=== PATIENT | male | born 1975 | race Caucasian/White ===

== ENCOUNTER 2022-12-22 14:09 | Emergency (ER) | payer BC, SELFPAY ==
--- NOTE | ~2022-12-22 | XR_ITS ---
EXAMINATION: XR foot LT min 3V DATE: 12/22/2022 15:29 INDICATION: Left foot foreign body. TECHNIQUE: 4 views of left foot were obtained. COMPARISON: None. FINDINGS: Bone alignment is normal. No fracture. There is mild osteoarthritis of first metatarsophala ngeal joint and second proximal interphalangeal joint. There is an enthesophyte at plantar aspect of calcaneal tuberosity. IMPRESSION: 1. No radiopaque foreign body. Reviewed, dictated and finalized at location L.
[2022-12-22 14:33] VITALS: BP 122/79; PULSE 95; RESP 14; TEMP 37.7; O2SAT 100
--- NOTE | 2022-12-22 15:02 | ED.GENADULT ---
HPI - General Adult General Chief complaint: Unspecified Stated complaint: throat issue, left foot issue Time Seen by Provider: 12/22/22 15:02 History of Present Illness HPI narrative: 47-year-old male presented for 2 complaints. Endorses sore throat worsening over the past few days. Endorses painful swallow on decreased appetite. He denies cough, shortness of breath, wheezing or fever. Denies sick contacts. Denies taking anything for symptoms. Second complaint is wound to the left foot. States this started as athlete's foot, now reports weeping, foul odor, and is tender. No pcp. Denies known medical problems. Related Data Allergies Allergy/AdvReac Type Severity Reaction Status Date / Time penicillin G Allergy Mild Hives Verified 12/22/22 15:12 Review of Systems Review of Systems: CONSTITUTIONAL: Denies body aches, fever, chills, or sweats. EYES: Denies visual changes, redness, or discharge. ENT: Reports sore throat denies rhinorrhea, congestion, or otalgia. CARDIOVASCULAR: Denies chest pain, palpitations, or edema. RESPIRATORY: Denies dyspnea. GASTROINTESTINAL: Denies abdominal pain, nausea, vomiting, or diarrhea. SKIN: Reports left foot wounds MUSCULOSKELETAL: Denies back pain, joint pain, or myalgia. NEUROLOGIC: Denies headache PMFSH Past Medical History Medical History (Updated 12/22/22 @ 16:22 by Laila Fragoso APRN) No pertinent past medical history Social History Social History (Updated 12/22/22 @ 15:15 by Laila Fragoso APRN) Smoking status: Current every day smoker Exam Narrative: GENERAL: Ill-appearing, no acute distress. EYES: conjunctivae clear ENT: Mucous membranes moist. TM pearly morales with normal light reflex bilaterally; no tragal tenderness. Oropharynx severely erythematous without lesions. Tonsils enlarged with exudate. hot potato voice noted, speaks minimally. No drooling, no hoarseness, no trismus, uvula midline. No tripod positioning, or soft palate swelling. NECK: Supple. Bilateral anterior cervical lymphadenopathy CHEST: Clear to auscultation, breath sounds equal. No respiratory distress, speaks in full sentences. HEART: Regular rate and rhythm. No murmur heard. SKIN: Left foot with weeping and macerated skin between all toes, purulent drainage, tenderness and mild swelling up to mid foot. Toes with scattered cracked areas/scabs draining purulent fluid. MTP area with dry cracked skin. Medial midfoot and dorsal aspect with scaly erythematous patches c/w eczema. NEURO: Alert and oriented x3. Course Course Emergency Course: Patient is aware of diagnosis, understands and agrees to treatment plan. Anticipatory guidance given. Patient agrees to follow-up as directed and is aware of reasons to seek care at the emergency department. Portions of this record may have been created with voice recognition software Level of Care: Express Care Visit Vital Signs Vital signs: Vital Signs Temperature 100 F H 12/22/22 14:33 Pulse Rate 95 12/22/22 14:33 Respiratory Rate 14 12/22/22 14:33 Blood Pressure 122/79 12/22/22 14:33 Pulse Oximetry 100 12/22/22 14:33 Oxygen Delivery Room Air 12/22/22 14:33 Temperature 100 F H 12/22/22 14:33 Pulse Rate 95 12/22/22 14:33 Respiratory Rate 14 12/22/22 14:33 Blood Pressure 122/79 12/22/22 14:33 Pulse Oximetry 100 12/22/22 14:33 Oxygen Delivery Room Air 12/22/22 14:33 Medical Decision Making MDM Narrative Medical decision making narrative: Strep positive, results reviewed with patient. PCN allergy Left foot wounds cleansed. X-ray negative, results reviewed with patient. Applied nonadhesive dressings between toes. Discussed physical exam findings. Rx clindamycin. Advised supportive measures and signs/symptoms to go to the ER. Pt is appropriate for outpt treatment and f/u. Provided wound care contact information. Differential Diagnosis Differential Diagnosis: Influenza, covid, s
== END 2022-12-22 16:53 | disposition home or self-care (01) ==
PROVIDERS: Emergency Provider Nurse Practitioner Family; PCP Emergency Medicine
DX: J02.0 Streptococcal pharyngitis (principal); L03.116 Cellulitis of left lower limb; F17.200 Nicotine dependence, unspecified, uncomplicated
CPT/HCPCS: 73630; 87880; 99213; G0463